=== PATIENT | female | born 1990 | race Caucasian/White ===

== ENCOUNTER 2017-09-07 17:02 | Emergency (ER) | payer OTHER ==
[2017-09-07 17:21] VITALS: BP 120/78; BMI 41.5
--- NOTE | 2017-09-07 17:46 | DR.URINEF ---
HPI - Time Seen Time seen: 17:35 - PCP Primary Care Physician: STIVEN - Complaint Chief Complaint Doctors Comments: Rt. lower abd./groin pain since this a.m. She had associated gross hematuria about 0700 hrs. She states that she was seen at the walk-in clinic in [place] and from there was sent to the hospital's ED for a CT Scan. However, she has been waiting for that test forever over there. She was nauseated. The hematutia has cleared up but she still has the pain which she describes as a steady ache. Chief Complaint:: PAIN TO RIGHT LOWER QUAD WITH HEMATURIA PER [facility]. PT HAS HAD INCREASED PAIN - Reviewed Nurses Notes Reviewed: Yes - Source History Provided: Patient - Mode of Arrival Mode of Arrival: Ambulatory - Timing Onset of Chief Complaint: 09/07/17 - Context Onset: Spontaneous - Quality Pain is: Aching - Severity Pain: Moderate Inability to Void: None - Location Pain Location: Right PMH - PMH Past Medical History: Yes Past Medical History: Anxiety, Depression Past Medical History Comment: RENAL STONES SMALL Past Surgical History: Yes Surgical History: , Cholecystectomy, Tonsillectomy - Family History History of Family Medical Conditions: Yes Family Medical History: Diabetes Mellitus, Coronary Artery Disease, Hypertension Family Medical History Comment: STROKE - Social History Alcohol Use: None Do you use any recreational Drugs:: No Lives With: Family Lives Where: Home - infectious screening In the last 2 months have you had wt loss of >10#?: NO Have you had fever, night sweats or hemotysis?: No Have you traveled outside the country in the last 6 months?: No Isolation: Standard ROS - Review of Systems Constitutional: No Symptoms Reported Eyes: No Symptoms Reported ENTM: No Symptoms Reported Respiratoy: No Symptoms Reported Cardiovascular: No Symptoms Reported Gastrointestinal/Abdominal: Abdominal Pain (rt. suprapubic/groin), Nausea Genitourinary: Other (hematuria) Neurological: No Symptoms Reported Musculoskeletal: No Symptoms Reported Integumentary: No Symptoms Reported Hematologic/Lymphatic: No Symptoms Reported Endocrine: No Symptoms Reported Psychiatric: No Symptoms Reported All Other Systems: Reviewed and Negative PE - Vital Signs Vitals: Temperature 97.5 F Pulse Rate 104 Respiratory Rate 18 Blood Pressure 120/78 O2 Sat by Pulse Oximetry 99 - General Limitations: No Limitations General Appearance: Alert, In No Apparent Distress - Head Head Exam: Normal Inspection - Eyes Eye exam: Normal Appearance - ENT ENT Exam: Normal Exam - Neck Neck Exam: Normal Inspection, Full ROM, Trachea Midline - Chest Chest Inspection: Normal Inspection, Symmetric Chest Wall Rise - Respiratory Respiratory Exam: Normal Lung Sounds Bilat - Cardiovascular Cardiovascular Exam: Regular Rate, Normal Rhythm, +S1, +S2 - Abdominal Exam Abdominal Exam: Normal Inspection, Normal Bowel Sounds, Soft, Tenderness (rt. CVA) - Rectal Rectal Exam: Deferred - Genitourinary External Exam: Female: Deferred - Extremities Extremities Exam: Normal Inspection, Full ROM - Back Back Exam: Normal Inspection, (R) CVA Tenderness - Neurologic Neurological Exam: Alert, Oriented X3 - Psychiatric Psychiatric Exam: Normal Affect, Normal Mood - Skin Skin Exam: Warm, Dry, Intact, Normal Color Course - Reevaluation 1st: Improved - Education/Counseling Education/Counseling: Patient, Family, Education, Counseling Educated On: Treatment, Diagnosis, Prognosis, Needs for Follow Up ROR - Labs Reviewed Result Diagrams: 09/07/17 17:55 Laboratory: Sodium 140 mmol/L (136-145) 09/07/17 17:55 Corrected Sodium 141 mmol/L (136-145) 09/07/17 17:55 Potassium 4.0 mmol/L (3.5-5.1) 09/07/17 17:55 Chloride 105 mmol/L (98-107) 09/07/17 17:55 Carbon Dioxide 27.9 mmol/L (21-32) 09/07/17 17:55 BUN 13 mg/dL (7-18) 09/07/17 17:55 Creatinine 0.97 mg/dL (0.55-1.02) 09/07/17 17:55 Est GFR (MDRD) Af Amer > 60 (>60) 09/07/17 17:55 Est GFR (MDRD) Non-Af > 60 (>60) 09/07/17 17:55 Glucose 121 mg/dL (65-99) H 09/07/17 17:55 Calcium 9.0 mg/dL (8.5-10.1) 09/07/17 17:55 Specimen Type Clean catch urine 09/07/17 17:38 Urine Color Yellow (YELLOW) 09/07/17 17:38 Urine Appearance Clear (CLEAR) 09/07/17 17:38 Urine pH 8.0 (5.0 - 8.0) 09/07/17 17:38 Ur Specific [place] 1.015 (1.000-1.030) 09/07/17 17:38 Urine Protein Negative (NEGATIVE) 09/07/17 17:38 Urine Glucose (UA) Negative (NEGATIVE) 09/07/17 17:38 Urine Ketones Negative (NEGATIVE) 09/07/17 17:38 Urine Occult Blood 1+ (NEGATIVE) 09/07/17 17:38 Urine Nitrite Negative (NEGATIVE) 09/07/17 17:38 Urine Bilirubin Negative (NEGATIVE) 09/07/17 17:38 Urine Urobilinogen Normal (NORMAL) 09/07/17 17:38 Ur Leukocyte Esterase Negative (NEGATIVE) 09/07/17 17:38 Urine RBC 3-5 /HPF (NONE SEEN) 09/07/17 17:38 Urine WBC 0-2 /HPF (NONE SEEN) 09/07/17 17:38 Ur Squamous Epith Cells Few /HPF (NEGATIVE) 09/07/17 17:38 Urine Bacteria Trace /HPF (NEGATIVE) 09/07/17 17:38 Urine Mucus Few /HPF (NEGATIVE) 09/07/17 17:38 Ur Culture Indicated? No/not indicated 09/07/17 17:38 - XRAY XRAY Interpreted by: Radiologist (minimal rt. sided hydronephrosisdue to a 3 mm UVJ stone. mild diverticulosis, heptic steatosis.) - Diagnosis Discharge Problem: Ureterolithiasis - Discharge Plan Disposition: HOME, SELF-CARE Condition: Stable Prescriptions: Hydrocodone/Acetaminophen [Hydrocodone-Acetamin 10-325 mg] 1 each PO Q6HR PRN # 20 tablet PRN Reason: Ondansetron HCl [Zofran Tab 4 mg] 4 mg PO Q6H PRN #15 tab PRN Reason: Nausea/Vomiting - Follow ups/Referrals Follow ups/Referrals: ANSELMO SALEEM [Primary Care Provider] - 3 days - Instructions
[2017-09-07] MEDS ORDERED: NS 1000 ML 1,000 ML IV ONE (17:48)
[2017-09-07] MEDS ORDERED: NS 1000 ML 1,000 ML ONE (17:58)
[2017-09-07] MEDS ORDERED: NORCO 5/325 MG TAB ONE (17:59)
[2017-09-07 18:00] LABS: BILIRUBIN,URINE NEGATIVE (NEGATIVE); BLOOD/HEMOGLOBIN,URINE 1+ (NEGATIVE); GLUCOSE, URINE NEGATIVE (NEGATIVE); KETONES,URINE NEGATIVE (NEGATIVE); LEUKOCYTE ESTERASE ,URINE NEGATIVE (NEGATIVE); NITRITES,URINE NEGATIVE (NEGATIVE); PROTEIN,URINE NEGATIVE (NEGATIVE); UROBILINOGEN,URINE NORMAL (NORMAL)
[2017-09-07 18:03] LABS: APPEARANCE,URINE CLEAR (CLEAR); COLOR,URINE YELLOW (YELLOW)
[2017-09-07 18:06] LABS: BACTERIA,URINE TRACE /HPF (NEGATIVE); MUCUS,URINE FEW /HPF (NEGATIVE); SQUAMOUS EPITHELIAL CELL,UR FEW /HPF (NEGATIVE)
[2017-09-07] MEDS ORDERED: NORCO 5/325 MG TAB PO ONE (18:06)
[2017-09-07 18:11] LABS: BLOOD UREA NITROGEN 13 mg/dL (7-18); CARBON DIOXIDE 27.9 mmol/L (21-32); CHLORIDE 105 mmol/L (98-107); COR NA(FOR HYPERGLY) 141 mmol/L (136-145); CREATININE 0.97 mg/dL (0.55-1.02); SODIUM 140 mmol/L (136-145); eGFR BLACK RACES > 60 (>60); eGFR NON BLACK RACES > 60 (>60)
--- NOTE | 2017-09-07 18:57 | CT ---
CT abdomen and pelvis without contrast Indication: Hematuria, right-sided groin pain Comparison: None Technique: CT images of the abdomen and pelvis were obtained without contrast per protocol. Automatic exposure control was utilized. Findings: The lung bases are grossly clear. No acute skeletal abnormality. The liver is mildly steatotic, but normal in size and configuration. Previous cholecystectomy is note d. Within noncontrast limitations, the spleen, stomach, duodenum, pancreas, adrenals, and left kidney are unremarkable. There is minimal right-sided hydroureteronephrosis secondary to a 3 mm calculus at the ureterovesicular junction. No left-sided ureteral stones or obstruction. A few scattered colonic diverticula are noted. No marked thickening or dilatation lower GI tract. The appendix is normal. The uterus and ovaries are noted. The rectum is unremarkable. No free fluid or a denopathy. Impression: Minimal right-sided hydroureteronephrosis secondary to a 3 mm UVJ stone. Mild diverticulosis, hepatic steatosis. Reported By:
[2017-09-07] MEDS ORDERED: PHENERGAN INJ 25 MG IV ONE (19:39)
[2017-09-07] MEDS ORDERED: MORPHINE SULFATE INJ 2 MG INJ IVP ONE (19:39)
[2017-09-07] MEDS ORDERED: PHENERGAN INJ 25 MG ONE (19:53)
[2017-09-07] MEDS ORDERED: MORPHINE SULFATE INJ 2 MG INJ ONE (19:53)
[2017-09-07] MEDS ORDERED: NORCO 10/325 TAB PO ONE (20:17)
[2017-09-07] MEDS ORDERED: ZOFRAN TAB 4 MG PO ONE (20:18)
[2017-09-07] MEDS ORDERED: NORCO 10/325 TAB ONE (20:19)
[2017-09-07] MEDS ORDERED: ZOFRAN TAB 4 MG ONE (20:19)
== END 2017-09-07 20:27 | disposition home or self-care (01) ==
LOC: ER 17:26
DX: N20.1 Calculus of ureter (principal); N13.30 Unspecified hydronephrosis; K57.90 Diverticulosis of intestine, part unspecified, without perforation or abscess without bleeding; R10.31 Right lower quadrant pain; K76.0 Fatty (change of) liver, not elsewhere classified
CPT/HCPCS: 36415; 74176; 80048; 81001; 96365; 96374; 96375; 99283; A4222; S0181; J2270; J2550

== ENCOUNTER 2017-09-10 02:09 | Emergency (ER) | payer OTHER ==
[2017-09-10 02:18] VITALS: BP 177/93; BMI 41.5
[2017-09-10] MEDS ORDERED: NS 1000 ML 1,000 ML IV ONE (02:36)
[2017-09-10] MEDS ORDERED: TORADOL 30 MG VIAL IVP ONE (02:37)
[2017-09-10] MEDS ORDERED: NS 1000 ML 1,000 ML ONE (02:39)
[2017-09-10] MEDS ORDERED: TORADOL 30 MG VIAL ONE (02:39)
--- NOTE | 2017-09-10 02:41 | DR.GENAD ---
HPI - PCP Primary Care Physician: ANSELMO SALEEM - Complaint/Symptoms Chief Complaint Doctors Comments: pt. was seen here about 30 hrs. ago with similar c/o. I did a Renal protocol CT Scan that showed a rt. 3 mm UVJ stone. She was d/c home with rx. for hydrocodone + Zofran. Her s/s recurred last night. She is pointing to her rt. posterior pelvic area. Chief Complaint:: WAS SEEN HERE SUNDAY FOR THE SAME COMPLAINT OF KIDNEY STONE, PAIN EASED OFF SOME BUT COME BACK THIS AFTERNOON . Self Treatment fo Chief Complaint: ZOFRAN (TAKEN AROUND MIDNIGHT). HYDROCODONE (TAKEN AROUND MIDNIGHT) - Nurses notes reviewed Nurses Notes Review: Yes - Source History Provided: Patient - Mode of Arrival Mode of Arrival: Ambulatory - Timing Onset of Chief Complaint: 09/10/17 PMH - PMH Past Medical History: Yes Past Medical History: Hypertension, Hypothyroidism Past Surgical History: Yes Surgical History: Cholecystectomy, Tonsillectomy Past Surgical History Comment: 2 C SECTIONS - Family History History of Family Medical Conditions: Yes Family Medical History: Diabetes Mellitus, Hypertension - Social History Does patient currently use any type of tobacco product: No Have you used tobacco products in the last 12 months: No Type of Tobacco Use: None Does any household member use tobacco: No Alcohol Use: None Do you use any recreational Drugs:: No Lives With: Spouse Lives Where: Home - infectious screening In the last 2 months have you had wt loss of >10#?: NO Have you had fever, night sweats or hemotysis?: No Have you traveled outside the country in the last 6 months?: No Isolation: Standard ROS - Review of Systems Constitutional: No Symptoms Reported Eyes: No Symptoms Reported ENTM: No Symptoms Reported Respiratoy: No Symptoms Reported Cardiovascular: No Symptoms Reported Gastrointestinal/Abdominal: No Symptoms Reported Genitourinary: Other (rt. posterior pelvic pain.) Neurological: No Symptoms Reported Musculoskeletal: No Symptoms Reported Integumentary: No Symptoms Reported Hematologic/Lymphatic: No Symptoms Reported Endocrine: No Symptoms Reported Psychiatric: No Symptoms Reported All Other Systems: Reviewed and Negative PE - Vital Signs Vitals: Temperature 95.7 F Pulse Rate 92 Respiratory Rate 20 Blood Pressure 177/93 O2 Sat by Pulse Oximetry 96 - General Limitations: No Limitations General Appearance: Alert, In Distress (pain related) - Head Head Exam: Normal Inspection - Eyes Eye exam: Normal Appearance - ENT ENT Exam: Normal Exam - Neck Neck Exam: Normal Inspection, Full ROM - Chest Chest Inspection: Normal Inspection, Symmetric Chest Wall Rise - Respiratory Respiratory Exam: Normal Lung Sounds Bilat - Cardiovascular Cardiovascular Exam: Regular Rate, Normal Rhythm, Normal Heart Sounds, +S1, +S2 - Abdominal Exam Abdominal Exam: Normal Inspection, Normal Bowel Sounds, Soft - Extremities Extremities Exam: Normal Inspection - Back Back Exam: Normal Inspection, (R) CVA Tenderness - Neurologic Neurological Exam: Alert, Oriented X3 - Psychiatric Psychiatric Exam: Normal Affect, Normal Mood - Skin Skin Exam: Warm, Dry, Intact, Normal Color - Diagnosis Discharge Problem: Ureterolithiasis - Discharge Plan Disposition: 01 HOME, SELF-CARE Condition: Stable - Follow ups/Referrals Follow ups/Referrals: ANSELMO SALEEM [Primary Care Provider] - 3 days - Instructions Instructions: Kidney Stones, [id number]
[2017-09-10] MEDS ORDERED: ZOFRAN INJ 4 MG VIAL IVP ONE (02:59)
[2017-09-10] MEDS ORDERED: ZOFRAN INJ 4 MG VIAL ONE (03:00)
[2017-09-10] MEDS ORDERED: DILAUDID INJ IVP ONE (04:07)
[2017-09-10] MEDS ORDERED: DILAUDID INJ ONE (04:08)
== END 2017-09-10 04:41 | disposition home or self-care (01) ==
LOC: ER 02:09
DX: N20.1 Calculus of ureter (principal)
CPT/HCPCS: 96365; 96374; 96375; 99282; 99283; A4222; J1170; J1885; J2405